=== PATIENT | female | born 1955 | race Caucasian/White ===

== ENCOUNTER 2021-02-20 12:24 | Inpatient (IN) | payer MEDICAID, MEDICARE ==
[~2021-02-20] VITALS: Ht 162.6 cm; Wt 82.6 kg
[2021-02-20] MEDS ORDERED: hydrALAZINE HCL IV 20 MG VIAL ONE (12:46)
--- NOTE | 2021-02-20 12:51 | NUR ---
luis antonio, from [facility], c/o headache and high blood pressure. bp 201/108 PT AAOX4, VSS. RR EVEN & UNLABORED. DENIES CP, SOB, DIZZINESS, N/V AT THIS TIME. PT SEEN & EVAL'D BY DR. LAUREN. PLACED ON TIMBER GRADER, SR. WILL CONT TO MONITOR.
[2021-02-20 12:56] LABS: BASOPHILS # (AUTO) 0.1 /CMM (0.0-0.2); BASOPHILS % (AUTO) 0.6 % (0.0-2.0); EOSINOPHILS % (AUTO) 19.9 % (0.0-6.0); HEMATOCRIT 39 % (33-45); HEMOGLOBIN 13.3 g/dL (11.5-14.8); LYMPHOCYTES # (AUTO) 2.2 /CMM (0.8-4.8); LYMPHOCYTES % (AUTO) 26.1 % (20.0-44.0); MEAN CORPUSCULAR HGB CONC 34 g/dl (31.0-36.0); MEAN CORPUSCULAR VOLUME 97 fL (82-100); MONOCYTES # (AUTO) 0.7 /CMM (0.1-1.30); MONOCYTES % (AUTO) 8.3 % (2.0-12.0); NEUTROPHILS # (AUTO) 3.9 /CMM (1.8-8.9); NEUTROPHILS % (AUTO) 45.1 % (43.0-81.0); PLATELET COUNT (AUTO) 207 /CMM (150-450); RED BLOOD CELL COUNT(AUTO) 4.04 MIL/uL (4.0-5.2); WHITE BLOOD COUNT (AUTO) 8.6 K/uL (4.3-11.0)
[2021-02-20] MEDS ORDERED: hydrALAZINE HCL IV 20 MG VIAL IV ONE (13:00)
[2021-02-20 13:31] LABS: ALANINE AMINOTRANSFERASE 17 U/L (12-78); ALBUMIN 3.6 g/dL (3.4-5.0); ALKALINE PHOSPHATASE 83 U/L (46-116); ASPARTATE AMINOTRANSFERASE 18 U/L (15-37); B-TYPE NATRIURETIC PEPTIDE 43 PG/ML (0-125); BILIRUBIN,DIRECT 0.1 mg/dL (0.0-0.2); BILIRUBIN,TOTAL 0.2 mg/dL (0.2-1.0); CALCIUM, SERUM 8.4 mg/dL (8.5-10.1); CARBON DIOXIDE 28 mmol/L (21-32); CHLORIDE 92 mmol/L (98-107); CREATININE 0.9 mg/dL (0.6-1.3); POTASSIUM 3.7 mmol/L (3.5-5.1); SODIUM SERUM 129 mmol/L (136-145); TOTAL PROTEIN, SERUM 6.9 g/dL (6.4-8.2); UREA NITROGEN, BLOOD 11 mg/dL (7-18)
[2021-02-20 13:36] LABS: GLUCOSE 105 mg/dL (74-106)
[2021-02-20] MEDS ORDERED: CHOL200013 PO (13:53)
[2021-02-20] MEDS ORDERED: DIVA-78 PO (13:53)
[2021-02-20] MEDS ORDERED: CALC500T53 PO (13:53)
[2021-02-20] MEDS ORDERED: ATOR20TA PO (13:53)
[2021-02-20] MEDS ORDERED: TRIA80OI TP (13:53)
[2021-02-20] MEDS ORDERED: AMLO5TAB4 PO (13:53)
[2021-02-20] MEDS ORDERED: CYAN-51 PO (13:53)
[2021-02-20] MEDS ORDERED: PARO30TA4 PO (13:53)
[2021-02-20] MEDS ORDERED: TRAZ-182 PO (13:53)
[2021-02-20] MEDS ORDERED: RISP2TAB85 PO (13:53)
[2021-02-20] MEDS ORDERED: LISI40TA13 PO (13:53)
[2021-02-20] MEDS: hydrALAZINE HCL IV 20 MG VIAL IV ONE ×2 (14:39→16:05)
--- NOTE | 2021-02-20 14:40 | NUR ---
PT BACK FROM CT. VSS. DENIES CP, SOB, DIZZINESS, N/V, [place] AT THIS TIME. WILL CONT TO MONITOR.
--- NOTE | 2021-02-20 14:40 | NUR ---
HOLD HYDRALAZINE PER DR. LAUREN DUE TO BP STABLE. PT DENIES CP, SOB, DIZZINESS, N/V, [place] AT THIS TIME. WILL CONT TO MONITOR.
--- NOTE | 2021-02-20 15:33 | NUR ---
NURSING SUP GAVE [phone].
--- NOTE | 2021-02-20 16:33 | NUR ---
NURSING SUP GAVE TELE 103-1.
--- NOTE | 2021-02-20 16:48 | NUR ---
REPORT GIVEN TO TANO BARBOUR FOR KOREY
[2021-02-20] MEDS ORDERED: MAG HYDROX/AL HYDROX/SIMETH 30 ML UDC PO PRN (17:00)
[2021-02-20] MEDS ORDERED: HYDROCODONE/APAP 5/325MG TABLET PO PRN (17:00)
[2021-02-20] MEDS ORDERED: MAGNESIUM HYDROXIDE 30 ML UDC PO PRN (17:00)
[2021-02-20] MEDS ORDERED: Z GUARD REMEDY 2 OZ OINT TP PRN (17:00)
[2021-02-20] MEDS ORDERED: ONDANSETRON HCL/PF 4 MG/2 ML VIAL IVP PRN (17:00)
[2021-02-20] MEDS: TRIAMCINOLONE OINT 0.1% 15 GM TUBE TP SCH (17:00)
--- NOTE | 2021-02-20 17:00 | NUR ---
RN ADMITTING NOTES Received PATIENT FROM ER, VIA GURNEY,patient ambulatory, A/Ox3, forgetful, on room air, SPO2 96%, no SOB noted, no pain reported, IV line on L AC intact, flushed, patent, starred NS @ 75cc/hr, safety measures in place, call light in reach, will cont to monitor
[2021-02-20] MEDS: CALCIUM CARBONATE (1250) 500 MG TABLET PO SCH (17:22)
[2021-02-20] MEDS: DIVALPROEX SODIUM 500 MG TABLET.DR PO SCH (17:22)
[2021-02-20] MEDS: IV NS 0.9% 1,000 ML IV PRN (17:23)
--- NOTE | 2021-02-20 17:57 | NUR ---
refused to change and wear gown, money placed in safe with dewatering filtering supervisor, paperwork completed
--- NOTE | 2021-02-20 19:15 | NUR ---
RN OPENING NOTES REC/D PT IN BED, AWAKE. A/O X3. PT NEEDS CONSISTENT REORIENTATION, FORGETFUL. PT IS ON ROOM AIR, TOLERATING WELL. NO S/S OF SOB OR RESP DISTRESS NOTED AT THIS TIME. PT IS NORMAL SINUS ON TELE MONITOR ING WITH HEART RATE OF 96. PT HAS IV ON LEFT AC, FLUSHED WITH IVF NS RUNNING AT 75ML/HR ORDERED. AMBULATORY WITH ASSIST, PT AT THIS TIME DENIES PAIN. SAFETY MEASURES IN PLACE HOB ELEVATED TOLERATED. SIDE RAILS UP X2 BED LOCKED IN LOWEST POSITION WITH CALL LIGHT WITHIN REACH BED ALARM ON. WILL CONT TO MONITOR CLOSELY MAKING FREQUENT ROUNDS.
[2021-02-20 20:00] VITALS: BP 148/65
[2021-02-20] MEDS: ACETAMINOPHEN 325 MG TABLET PO PRN (20:47)
--- NOTE | 2021-02-20 20:50 | NUR ---
RN NOTE PT REQUESTED TYLENOL FOR HEADACHE, PAIN 3-4/10. WILL CONT TO MONITOR
[2021-02-20] MEDS: ATORVASTATIN 10 MG TABLET PO SCH (22:39)
[2021-02-20] MEDS: risperiDONE 1 MG TABLET PO SCH (22:39)
[2021-02-20] MEDS: TRAZODONE 50 MG TABLET PO SCH (22:40)
--- NOTE | 2021-02-20 23:40 | NUR ---
RN NOTES PT USES RESTROOM, HAS STEADY GAIT. STANDBY ASSIST. EDUCATED PT ON IMPORTANCE OF USING CALL LIGHT FOR ASSISTANCE.
[2021-02-21] VITALS (8 sets, daily range): BP systolic 102–179; BP diastolic 60–114
--- NOTE | 2021-02-21 02:45 | NUR ---
RN NOTES PT APPEARS TO BE SLEEPING UPON ROUNDS. NO DISTRESS NOTED AT THIS TIME. WILL CONT TO MONITOR AND ASSESS FOR CHANGE OF CONDITION
[2021-02-21 06:19] LABS: BASOPHILS # (AUTO) 0.1 /CMM (0.0-0.2); BASOPHILS % (AUTO) 0.7 % (0.0-2.0); EOSINOPHILS % (AUTO) 16.9 % (0.0-6.0); HEMATOCRIT 40 % (33-45); HEMOGLOBIN 13.3 g/dL (11.5-14.8); LYMPHOCYTES # (AUTO) 1.9 /CMM (0.8-4.8); LYMPHOCYTES % (AUTO) 21.3 % (20.0-44.0); MEAN CORPUSCULAR HGB CONC 34 g/dl (31.0-36.0); MEAN CORPUSCULAR VOLUME 97 fL (82-100); MONOCYTES # (AUTO) 0.8 /CMM (0.1-1.30); MONOCYTES % (AUTO) 9.1 % (2.0-12.0); NEUTROPHILS # (AUTO) 4.6 /CMM (1.8-8.9); PLATELET COUNT (AUTO) 215 /CMM (150-450); RED BLOOD CELL COUNT(AUTO) 4.09 MIL/uL (4.0-5.2); WHITE BLOOD COUNT (AUTO) 8.9 K/uL (4.3-11.0)
[2021-02-21] MEDS: IV NS 0.9% 1,000 ML IV PRN (06:36)
--- NOTE | 2021-02-21 07:18 | NUR ---
RN CLOSING NOTES NO SIGNIFICANT CHANGES OVER NIGHT. PT STILL ON ROOM AIR, TOLERATING WELL, NO S/S OF SOB OR RESP DISTRESS AT THIS TIME. PT DENIES PAIN. ON TELE IS STILL SINUS RHYTHM WITH HEART RATE IN THE 80S. PT REMAINS WITH RIGHT HAND #22 WITH NS @ 75CC/HR RUNNING ORDERED. NO S/S OF INFILTRATION NOTED. BED BATH DONE, ALL NEEDS ATTENDED AND SAFETY MEASURES IN PLACE. HOB ELEVATED. SIDE RAILS UP X2, BED LOCKED IN LOWEST POSITION WITH BED ALARM ON. CALL LIGHT WITHIN REACH. WILL ENDORSE TO AM SHIFT FOR CONTINUATION OF CARE.
[2021-02-21 07:50] LABS: CREATININE 0.6 mg/dL (0.6-1.3); MAGNESIUM 2.3 mg/dL (1.8-2.4); PHOSPHORUS 3.7 mg/dL (2.5-4.9)
--- NOTE | 2021-02-21 08:00 | NUR ---
RN Note: Pt received alert awake oriented X 2 with periods of confusion & forgetfulness. On RA, no breathing distress noted. Denies pain & discomfort. Safety measures observed, IV line intact, running with IV fluids as ordered. Encourage to use call light for assistance. Continue to monitor.
[2021-02-21] MEDS: hydrALAZINE HCL IV 20 MG VIAL IV PRN ×2 (08:05→14:21)
[2021-02-21] MEDS: hydrALAZINE HCL 50 MG TABLET PO SCH ×3 (09:00→17:34)
[2021-02-21] MEDS ORDERED: AMLODIPINE BESYLATE 5 MG TABLET PO SCH (09:00)
[2021-02-21] MEDS: PANTOPRAZOLE 40 MG TABLET.DR PO SCH (09:09)
[2021-02-21] MEDS: PAROXETINE HCL 10 MG TABLET PO SCH (09:10)
[2021-02-21] MEDS: DIVALPROEX SODIUM 500 MG TABLET.DR PO SCH ×2 (09:10→17:34)
[2021-02-21] MEDS: CALCIUM CARBONATE (1250) 500 MG TABLET PO SCH ×2 (09:10→17:33)
[2021-02-21] MEDS: CHOLECALCIFEROL 1,000 UNIT TABLET (VIT D3) PO SCH (09:10)
[2021-02-21] MEDS: AMLODIPINE BESYLATE 5 MG TABLET PO SCH (09:11)
[2021-02-21] MEDS: CYANOCOBALAMIN 500 MCG TABLET PO SCH (09:12)
[2021-02-21] MEDS: LISINOPRIL (20MG) 20 MG TABLET PO SCH (09:12)
[2021-02-21] MEDS: TRIAMCINOLONE OINT 0.1% 15 GM TUBE TP SCH ×2 (09:31→17:00)
[2021-02-21] MEDS: NITROGLYCERIN 30 GM TUBE TP SCH ×2 (09:32→21:07)
[2021-02-21] MEDS: ACETAMINOPHEN 325 MG TABLET PO PRN (09:42)
[2021-02-21] MEDS: ATORVASTATIN 10 MG TABLET PO SCH (21:07)
[2021-02-21] MEDS: risperiDONE 1 MG TABLET PO SCH (21:07)
[2021-02-21] MEDS: TRAZODONE 50 MG TABLET PO SCH (21:07)
[2021-02-22] VITALS: BP 106/66
[2021-02-22 04:00] VITALS: BP 134/86
[2021-02-22] MEDS: ACETAMINOPHEN 325 MG TABLET PO PRN (05:34)
[2021-02-22 06:19] LABS: BASOPHILS # (AUTO) 0.1 /CMM (0.0-0.2); BASOPHILS % (AUTO) 0.5 % (0.0-2.0); EOSINOPHILS % (AUTO) 11.2 % (0.0-6.0); HEMATOCRIT 37 % (33-45); HEMOGLOBIN 12.6 g/dL (11.5-14.8); LYMPHOCYTES # (AUTO) 1.8 /CMM (0.8-4.8); LYMPHOCYTES % (AUTO) 14.8 % (20.0-44.0); MEAN CORPUSCULAR HGB CONC 34 g/dl (31.0-36.0); MEAN CORPUSCULAR VOLUME 96 fL (82-100); MONOCYTES # (AUTO) 1.2 /CMM (0.1-1.30); NEUTROPHILS # (AUTO) 7.5 /CMM (1.8-8.9); NEUTROPHILS % (AUTO) 63.5 % (43.0-81.0); PLATELET COUNT (AUTO) 218 /CMM (150-450); RED BLOOD CELL COUNT(AUTO) 3.88 MIL/uL (4.0-5.2); WHITE BLOOD COUNT (AUTO) 11.8 K/uL (4.3-11.0)
[2021-02-22 06:27] LABS: CREATININE 0.7 mg/dL (0.6-1.3); MAGNESIUM 2.5 mg/dL (1.8-2.4); PHOSPHORUS 3.7 mg/dL (2.5-4.9); POTASSIUM 3.8 mmol/L (3.5-5.1)
[2021-02-22 06:40] LABS: THYROID STIMULATING HORMONE 1.803 uIU/mL (0.358-3.74); URIC ACID 3.9 mg/dL (2.6-7.2)
--- NOTE | 2021-02-22 07:04 | NUR ---
RECEIVED PATIENT IN BED. NO ACUTE DISTRESS NOTED. PATIENT ALERT & ORIENTED X2, WITH FORGETFULNESS. PATIENT ON ROOM AIR, SATURATING WELL. PATIENT ON MARKET DEVELOPMENT SPECIALIST, NSR NOTED. PATIENT R HAND IV ACCESS INTACT, PATENT. PATIENT SAFETY MEASURES MAINTAINED. CALL LIGHT WITHIN REACH. WILL CONTINUE TO MONITOR
[2021-02-22 08:00] VITALS: BP 155/95
[2021-02-22] MEDS: PANTOPRAZOLE 40 MG TABLET.DR PO SCH (08:04)
[2021-02-22] MEDS: CYANOCOBALAMIN 500 MCG TABLET PO SCH (08:04)
[2021-02-22] MEDS: AMLODIPINE BESYLATE 5 MG TABLET PO SCH (08:05)
[2021-02-22] MEDS: hydrALAZINE HCL 50 MG TABLET PO SCH ×2 (08:05→12:04)
[2021-02-22] MEDS: LISINOPRIL (20MG) 20 MG TABLET PO SCH (08:05)
[2021-02-22] MEDS: DIVALPROEX SODIUM 500 MG TABLET.DR PO SCH (08:05)
[2021-02-22] MEDS: PAROXETINE HCL 10 MG TABLET PO SCH (08:05)
[2021-02-22] MEDS: CALCIUM CARBONATE (1250) 500 MG TABLET PO SCH (08:05)
[2021-02-22] MEDS: TRIAMCINOLONE OINT 0.1% 15 GM TUBE TP SCH (08:06)
[2021-02-22] MEDS: CHOLECALCIFEROL 1,000 UNIT TABLET (VIT D3) PO SCH (08:06)
[2021-02-22] MEDS: NITROGLYCERIN 30 GM TUBE TP SCH (08:06)
--- NOTE | 2021-02-22 08:08 | NUR ---
OK BY DR. SUAREZ ORDERING MD TO CONSENT FOR CT CHEST WITH CONTRAST, IVETH FISHER CONSENTED RADIOLOGIST MADE AWARE.
[2021-02-22] MEDS ORDERED: CARVEDILOL 12.5 MG TABLET PO SCH (09:30)
[2021-02-22] MEDS ORDERED: ISOSORBIDE DINITRATE (20MG) 20 MG TABLET PO SCH (09:30)
[2021-02-22] MEDS ORDERED: IV NS 0.9% 250 ML IV ONE (10:39)
[2021-02-22] MEDS ORDERED: IOHEXOL-300 100 ML VIAL IV ONE (10:39)
[2021-02-22] MEDS ORDERED: CT SWABBABLE VALVE TRANS SET 1 EA INFUS.SET MC ONE (10:40)
[2021-02-22 12:04] VITALS: BP 155/95
[2021-02-22] MEDS ORDERED: AMLO-212 PO ×2 (12:58→14:27)
[2021-02-22] MEDS ORDERED: HYDR-4077 PO ×2 (12:58→14:27)
[2021-02-22] MEDS ORDERED: ISOS20TA8 PO ×2 (12:58→14:27)
[2021-02-22] MEDS ORDERED: CARV12.52 PO ×2 (12:58→14:27)
--- NOTE | 2021-02-22 15:46 | NUR ---
PATIENT DISCHARGED IN STABLE CONDITION. PAPERWORK, INSTRUCTIONS, BELONGINGS GIVEN. IV ACCESS REMOVED. PATIENT DOWNGRADED TO MED SURG, SO NO TELE BOX ANYMORE.
--- NOTE | 2021-02-23 11:42 | NUR ---
Line Supply note: SW contacted patient's Board and Care [phone] to locate a family member or legal decision maker. GE spoke to the contract coordinator of the Board and Care, Al who stated that the patient does not have any family contact. Al stated the patient is a [facility] client and provided this SW with the patient's [facility] contact information (Anastasiya Nelson [phone]). GE called patient's [facility] to discuss the patient (Anastasiya Nelson [phone]) and gather information. GE was unable to reach and left a voicemail.
== END 2021-02-22 15:41 | DRG 699 ==
LOC: ER 13:33 → TELE 15:40 → UNDOADMIN 15:40 → TELE1 16:34 → MEDSG1 02-22 08:22
PROVIDERS: ADMIT Nurse Practitioner Family; ATTEND Nurse Practitioner Family
DX: I70.1 Atherosclerosis of renal artery (principal); R18.8 Other ascites; E87.1 Hypo-osmolality and hyponatremia; I16.0 Hypertensive urgency; Z20.822 Contact with and (suspected) exposure to COVID-19; G40.909 Epilepsy, unspecified, not intractable, without status epilepticus; F03.90 Unspecified dementia, unspecified severity, without behavioral disturbance, psychotic disturbance, mood disturbance, and anxiety; E78.5 Hyperlipidemia, unspecified; I10 Essential (primary) hypertension; Z79.899 Other long term (current) drug therapy; R62.50 Unspecified lack of expected normal physiological development in childhood; F41.9 Anxiety disorder, unspecified; I70.0 Atherosclerosis of aorta; F20.9 Schizophrenia, unspecified; R91.8 Other nonspecific abnormal finding of lung field
CPT/HCPCS: 36415; 70450-TC; 71045-TC; 71260-TC; 80048-TC; 80061-TC; 80076-TC; 83735-TC; 83880; 84100-TC; 84439-TC; 84443-TC; 84484-TC; 84550-TC; 85025-TC; 85730-TC; 87081-TC; 93307-TC; G0378; J0360; J7030; J7050; Q9967; U0003

== ENCOUNTER 2021-12-10 12:50 | Inpatient (IN) | payer MEDICARE ==
[~2021-12-10] VITALS: Ht 160 cm; Wt 85.4 kg
[~2021-12-10 12:50] MED LIST: AMLO-212 PO; ATOR20TA PO; CALC500T53 PO; CARV12.52 PO; CHOL200013 PO; CYAN-51 PO; DIVA-78 PO; HYDR-4077 PO; ISOS20TA8 PO; LISI40TA13 PO; PARO30TA4 PO; RISP2TAB85 PO; TRAZ-182 PO; TRIA80OI TP
[2021-12-10] MEDS ORDERED: IV NS 0.9% 250 ML IV ONE (13:07)
[2021-12-10] MEDS ORDERED: IOHEXOL-350 100 ML VIAL IV ONE (13:07)
[2021-12-10 13:10] LABS: BASOPHILS % (AUTO) 0.8 % (0.0-2.0); EOSINOPHILS % (AUTO) 2.9 % (0.0-6.0); HEMATOCRIT 38 % (33-45); HEMOGLOBIN 12.8 g/dL (11.5-14.8); LYMPHOCYTES # (AUTO) 1.9 K/uL (0.8-4.8); LYMPHOCYTES % (AUTO) 30.8 % (20.0-44.0); MEAN CORPUSCULAR HGB CONC 34 g/dl (31.0-36.0); MEAN CORPUSCULAR VOLUME 99 fL (82-100); MONOCYTES # (AUTO) 0.5 K/uL (0.1-1.30); NEUTROPHILS # (AUTO) 3.5 K/uL (1.8-8.9); NEUTROPHILS % (AUTO) 57.5 % (43.0-81.0); PLATELET COUNT (AUTO) 249 K/uL (150-450); RED BLOOD CELL COUNT(AUTO) 3.88 MIL/uL (4.0-5.2); WHITE BLOOD COUNT (AUTO) 6.2 K/uL (4.3-11.0)
[2021-12-10 13:19] LABS: CALCIUM, SERUM 9.3 mg/dL (8.5-10.1); CARBON DIOXIDE 24 mmol/L (21-32); CHLORIDE 104 mmol/L (98-107); CREATININE 0.8 mg/dL (0.6-1.3); GLUCOSE 178 mg/dL (74-106); POTASSIUM 3.8 mmol/L (3.5-5.1); SODIUM SERUM 136 mmol/L (136-145); UREA NITROGEN, BLOOD 14 mg/dL (7-18)
[2021-12-10] MEDS ORDERED: LORA-259 PO (13:50)
[2021-12-10] MEDS ORDERED: CARV25TA PO (13:50)
[2021-12-10] MEDS ORDERED: LEVE500T20 PO (13:50)
[2021-12-10] MEDS ORDERED: MAGN400T8 PO (13:50)
[2021-12-10] MEDS ORDERED: hydrALAZINE HCL 50 MG TABLET ONE (16:49)
[2021-12-10] MEDS ORDERED: LORAZEPAM 1 MG TABLET PO PRN (17:00)
[2021-12-10] MEDS ORDERED: ASPIRIN 81 MG TAB.CHEW PO ONE (17:00)
[2021-12-10] MEDS ORDERED: Medication Not On Formulary EA (Levetiracetam 250 MG) PO SCH (17:00)
[2021-12-10] MEDS ORDERED: ONDANSETRON HCL/PF 4 MG/2 ML VIAL IVP PRN (17:30)
[2021-12-10] MEDS ORDERED: Z GUARD REMEDY 4 OZ OINT TP PRN (17:30)
[2021-12-10] MEDS ORDERED: ACETAMINOPHEN 325 MG TABLET PO PRN (17:30)
[2021-12-10] MEDS ORDERED: MAGNESIUM HYDROXIDE 30 ML UDC PO PRN (17:30)
[2021-12-10] MEDS ORDERED: MAG HYDROX/AL HYDROX/SIMETH 30 ML UDC PO PRN (17:30)
[2021-12-10] MEDS ORDERED: ENOXAPARIN SODIUM 40 MG/0.4 ML DISP.SYRIN SQ ONE (17:43)
[2021-12-10] MEDS ORDERED: ASPIRIN 81 MG TAB.CHEW ONE (17:43)
[2021-12-10] MEDS: ENOXAPARIN SODIUM 40 MG/0.4 ML DISP.SYRIN SQ SCH (17:46)
[2021-12-10] MEDS: hydrALAZINE HCL 50 MG TABLET PO SCH (17:51)
[2021-12-10] MEDS ORDERED: CARVEDILOL 12.5 MG TABLET ONE (17:53)
[2021-12-10] MEDS: LEVETIRACETAM (250 MG) 250 MG TABLET PO SCH (17:53)
[2021-12-10] MEDS ORDERED: LEVETIRACETAM (250 MG) 250 MG TABLET PO ONE (17:53)
[2021-12-10] MEDS: CARVEDILOL 12.5 MG TABLET PO SCH (17:54)
[2021-12-10 22:08] VITALS: BP 186/99
[2021-12-10] MEDS: ATORVASTATIN 40 MG TABLET PO SCH (22:48)
[2021-12-10] MEDS: TRAZODONE 50 MG TABLET PO SCH (22:48)
[2021-12-11] VITALS: BP 148/76
[2021-12-11 04:00] VITALS: BP 131/79
[2021-12-11 06:44] LABS: BASOPHILS % (AUTO) 0.6 % (0.0-2.0); EOSINOPHILS % (AUTO) 2.1 % (0.0-6.0); HEMATOCRIT 39 % (33-45); HEMOGLOBIN 12.9 g/dL (11.5-14.8); LYMPHOCYTES # (AUTO) 2.1 K/uL (0.8-4.8); LYMPHOCYTES % (AUTO) 29.2 % (20.0-44.0); MEAN CORPUSCULAR HGB CONC 33 g/dl (31.0-36.0); MEAN CORPUSCULAR VOLUME 99 fL (82-100); MONOCYTES # (AUTO) 0.8 K/uL (0.1-1.30); MONOCYTES % (AUTO) 11.1 % (2.0-12.0); NEUTROPHILS # (AUTO) 4.2 K/uL (1.8-8.9); PLATELET COUNT (AUTO) 245 K/uL (150-450); RED BLOOD CELL COUNT(AUTO) 3.91 MIL/uL (4.0-5.2); WHITE BLOOD COUNT (AUTO) 7.3 K/uL (4.3-11.0)
[2021-12-11 06:58] LABS: CALCIUM, SERUM 9.1 mg/dL (8.5-10.1); CREATININE 0.7 mg/dL (0.6-1.3); MAGNESIUM 2.2 mg/dL (1.8-2.4); POTASSIUM 3.6 mmol/L (3.5-5.1)
[2021-12-11 08:07] VITALS: BP 155/104
[2021-12-11] MEDS: CYANOCOBALAMIN 500 MCG TABLET PO SCH (08:15)
[2021-12-11] MEDS: hydrALAZINE HCL 50 MG TABLET PO SCH ×3 (08:16→17:38)
[2021-12-11] MEDS: AMLODIPINE BESYLATE 5 MG TABLET PO SCH (08:16)
[2021-12-11] MEDS: CHOLECALCIFEROL 1,000 UNIT TABLET (VIT D3) PO SCH (08:16)
[2021-12-11] MEDS: LEVETIRACETAM (250 MG) 250 MG TABLET PO SCH ×2 (08:16→17:37)
[2021-12-11] MEDS: CARVEDILOL 12.5 MG TABLET PO SCH ×2 (08:17→17:37)
[2021-12-11] MEDS ORDERED: CHOLECALCIFEROL 2000 UNIT PO SCH (09:00)
[2021-12-11] MEDS ORDERED: PAROXETINE HCL 30 MG PO SCH (09:00)
[2021-12-11] MEDS: PAROXETINE HCL 10 MG TABLET PO SCH (09:22)
[2021-12-11 10:04] LABS: THYROID STIMULATING HORMONE 2.731 uIU/mL (0.358-3.74)
[2021-12-11 15:48] VITALS: BP 150/75
[2021-12-11] MEDS: ENOXAPARIN SODIUM 40 MG/0.4 ML DISP.SYRIN SQ SCH (17:40)
[2021-12-11 20:00] VITALS: BP 128/76
[2021-12-11] MEDS: TRAZODONE 50 MG TABLET PO SCH (21:02)
[2021-12-11] MEDS: ATORVASTATIN 40 MG TABLET PO SCH (21:02)
[2021-12-12] VITALS: BP 146/88
[2021-12-12 04:00] VITALS: BP 154/87
[2021-12-12 06:14] LABS: BASOPHILS % (AUTO) 0.6 % (0.0-2.0); EOSINOPHILS % (AUTO) 2.4 % (0.0-6.0); HEMATOCRIT 38 % (33-45); HEMOGLOBIN 12.9 g/dL (11.5-14.8); LYMPHOCYTES # (AUTO) 1.8 K/uL (0.8-4.8); MEAN CORPUSCULAR HGB CONC 34 g/dl (31.0-36.0); MEAN CORPUSCULAR VOLUME 98 fL (82-100); MONOCYTES # (AUTO) 0.7 K/uL (0.1-1.30); MONOCYTES % (AUTO) 12.3 % (2.0-12.0); NEUTROPHILS % (AUTO) 52.7 % (43.0-81.0); PLATELET COUNT (AUTO) 230 K/uL (150-450); RED BLOOD CELL COUNT(AUTO) 3.86 MIL/uL (4.0-5.2); WHITE BLOOD COUNT (AUTO) 5.7 K/uL (4.3-11.0)
[2021-12-12 06:41] LABS: CALCIUM, SERUM 9.6 mg/dL (8.5-10.1); CREATININE 0.7 mg/dL (0.6-1.3); MAGNESIUM 2.2 mg/dL (1.8-2.4); POTASSIUM 3.7 mmol/L (3.5-5.1)
[2021-12-12 08:00] VITALS: BP 148/86
[2021-12-12] MEDS: CHOLECALCIFEROL 1,000 UNIT TABLET (VIT D3) PO SCH (08:10)
[2021-12-12] MEDS: CARVEDILOL 12.5 MG TABLET PO SCH ×2 (08:10→16:24)
[2021-12-12] MEDS: LEVETIRACETAM (250 MG) 250 MG TABLET PO SCH ×2 (08:10→16:24)
[2021-12-12] MEDS: hydrALAZINE HCL 50 MG TABLET PO SCH ×3 (08:10→16:23)
[2021-12-12] MEDS: CYANOCOBALAMIN 500 MCG TABLET PO SCH (08:10)
[2021-12-12] MEDS: AMLODIPINE BESYLATE 5 MG TABLET PO SCH (08:11)
[2021-12-12] MEDS: PAROXETINE HCL 10 MG TABLET PO SCH (08:13)
[2021-12-12] MEDS ORDERED: ASPI-866 PO (10:48)
[2021-12-12] MEDS ORDERED: ASPIRIN 81 MG TAB.CHEW PO SCH (11:00)
[2021-12-12 12:00] VITALS: BP 119/78
[2021-12-12 16:24] VITALS: BP 170/86
== END 2021-12-12 16:30 | DRG 69 ==
LOC: ER 12:54 → TRANSITION 17:01 → TELE 21:18
PROVIDERS: ADMIT Nurse Practitioner Family; ATTEND Nurse Practitioner Family
DX: G45.9 Transient cerebral ischemic attack, unspecified (principal); E78.5 Hyperlipidemia, unspecified; F20.9 Schizophrenia, unspecified; F02.80 Dementia in other diseases classified elsewhere, unspecified severity, without behavioral disturbance, psychotic disturbance, mood disturbance, and anxiety; G40.909 Epilepsy, unspecified, not intractable, without status epilepticus; I10 Essential (primary) hypertension; F32.A Depression, unspecified; Z79.82 Long term (current) use of aspirin; Z79.899 Other long term (current) drug therapy; R73.9 Hyperglycemia, unspecified; G20 Parkinson's disease; E04.1 Nontoxic single thyroid nodule; I70.1 Atherosclerosis of renal artery; R13.10 Dysphagia, unspecified; R29.701 NIHSS score 1
CPT/HCPCS: 36415; 70450-TC; 70496-TC; 70498-TC; 70551-TC; 71045-TC; 76536-TC; 80048-TC; 80061-TC; 82962-TC; 83735-TC; 84439-TC; 84443-TC; 84484-TC; 85025-TC; 85730-TC; 87081-TC; 92526; 92611-TC; 93307-TC; 97116-TC; 97530-TC; C9803; G0378; J1650; J7050; Q9967

== ENCOUNTER 2023-02-20 13:19 | Inpatient (IN) | payer MEDICARE, OTHER ==
[~2023-02-20] VITALS: Ht 162.6 cm; Wt 64.9 kg
[~2023-02-20 13:19] MED LIST changes: +ASPI-866 PO; -CARV12.52 PO; +CARV25TA PO; -DIVA-78 PO; -ISOS20TA8 PO; +LEVE500T20 PO; -LISI40TA13 PO; +LORA-259 PO; +MAGN400T8 PO; -RISP2TAB85 PO; -TRIA80OI TP
--- NOTE | 2023-02-20 13:45 | NUR ---
[id number] FROM [facility] FOR SOB COUGH CONGESTION X 2 DAYS 89% ROOM AIR ON SCENE, 96% ON 4L NC ON ARRIVAL
[2023-02-20] MEDS ORDERED: ALBUTEROL FS 2.5 MG/0.5 ML VIAL.NEB ONE (14:22)
[2023-02-20] MEDS ORDERED: IPRATROPIUM NEB FS 0.5 MG/2.5 ML AMPUL.NEB ONE (14:22)
[2023-02-20] MEDS ORDERED: ALBUTEROL FS 2.5 MG/0.5 ML VIAL.NEB NEB ONE (14:30)
[2023-02-20] MEDS ORDERED: IPRATROPIUM NEB FS 0.5 MG/2.5 ML AMPUL.NEB NEB ONE (14:30)
--- NOTE | 2023-02-20 14:42 | NUR ---
RT AT BEDSIDE FOR BREATHING TX
[2023-02-20 14:52] LABS: BASOPHILS % (AUTO) 0.1 % (0.0-2.0); EOSINOPHILS % (AUTO) 0.1 % (0.0-6.0); HEMATOCRIT 34 % (33-45); HEMOGLOBIN 10.9 g/dL (11.5-14.8); LYMPHOCYTES # (AUTO) 0.6 K/uL (0.8-4.8); LYMPHOCYTES % (AUTO) 3.5 % (20.0-44.0); MEAN CORPUSCULAR HGB CONC 32 g/dl (31.0-36.0); MEAN CORPUSCULAR VOLUME 96 fL (82-100); MONOCYTES # (AUTO) 0.2 K/uL (0.1-1.30); MONOCYTES % (AUTO) 1.5 % (2.0-12.0); NEUTROPHILS % (AUTO) 94.8 % (43.0-81.0); PLATELET COUNT (AUTO) 182 K/uL (150-450); RED BLOOD CELL COUNT(AUTO) 3.59 MIL/uL (4.0-5.2); WHITE BLOOD COUNT (AUTO) 15.8 K/uL (4.3-11.0)
[2023-02-20 15:07] LABS: CALCIUM, SERUM 9.2 mg/dL (8.5-10.1); CARBON DIOXIDE 26 mmol/L (21-32); CHLORIDE 101 mmol/L (98-107); CREATININE 1.1 mg/dL (0.6-1.3); GLUCOSE 141 mg/dL (74-106); POTASSIUM 3.7 mmol/L (3.5-5.1); SODIUM SERUM 134 mmol/L (136-145); UREA NITROGEN, BLOOD 20 mg/dL (7-18)
[2023-02-20] MEDS ORDERED: VANCOMYCIN 1 GM in IV D5W 250 ML IV ONE (15:30)
[2023-02-20] MEDS ORDERED: CEFEPIME 2 GM in IV D5W 100 ML IV ONE (15:30)
[2023-02-20] MEDS ORDERED: POTASSIUM CHLORIDE 20 MEQ TAB.PRT.SR PO ONE ×2 (15:30→15:58)
[2023-02-20] MEDS ORDERED: BENZ0.5T43 PO (15:50)
[2023-02-20] MEDS ORDERED: CHOL100043 PO (15:50)
[2023-02-20] MEDS ORDERED: HYDR-4077 PO (15:50)
[2023-02-20] MEDS ORDERED: RISP0.2515 PO (15:50)
[2023-02-20] MEDS ORDERED: ASPI-1420 PO (15:50)
[2023-02-20] MEDS ORDERED: OMEP40CA21 PO (15:50)
--- NOTE | 2023-02-20 15:51 | NUR ---
MOVE SHEET SUBMITTED.
--- NOTE | 2023-02-20 15:53 | NUR ---
COVID SWAB OBTAINED AND SENT TO LAB.
[2023-02-20] MEDS ORDERED: Magnesium 1GM/D5W 100ML PREMIX 200 ML IV ONE (18:00)
[2023-02-20] MEDS: Magnesium 1GM/D5W 100ML PREMIX 100 ML IV SCH ×2 (18:34→20:00)
--- NOTE | 2023-02-20 19:41 | NUR ---
JOEY HUIZAR [phone]
--- NOTE | 2023-02-20 20:10 | NUR ---
REPORT GIVEN TO VARSHA FREEDMAN FOR CONTINUATION OF CARE.
[2023-02-20 20:50] VITALS: BP 157/88
--- NOTE | 2023-02-20 21:02 | NUR ---
PT TRANSFERRED TO [facility] VIA ACLS PROTOCOL. VSS. ALL BELONGINGS WITH PT.
--- NOTE | 2023-02-20 21:30 | NUR ---
DENTAL SALES REPRESENTATIVE ADMITTING NOTES RECEIVED PATIENT VIA eyeSight Mobile TechnologiesETCHER. AWAKE. A/O X 2-3. ABLE TO MAKE NEEDS KNOWN. EPISODES OF CONFUSION AND INCORRECT ANSWERS. PATIENT ON NASAL CANNULA @3LPM TOLERATING WELL WITH SATURATION OF 96%. PATIENT HAVING SOB AND WHEEZING UPON EXERTION. PATIENT DENIES ANY PAIN AT THE MOMENT. PATIENT ON TELE MONITOR WITH READING OF SINUS RHYTHM 70BPM. SKIN ASSESSMENT AND BODY CHECK DONE WITH PATIENTS PERMISSION TO DO SO. SKIN IS INTACT NOTED. IV ACCESS ON RIGHT AC G#20 NOTED TO BE PATENT AND INTACT INFUSING 0.9%NS @75CC/HR ORDERED. PATIENT WAS ORIENTED TO THE ROOM AND HOW TO USE THE CALL LIGHT. PATIENT VERBALIZES UNDERSTANDING. ALL BELONGINGS ARE ACCOUNTED FOR. SAFETY MEASURE IN PLACED; BED LOCKED AND IN LOWEST POSITION, HOB ELEVATED, CALL LIGHT AND BEDSIDE TABLE WITHIN PATIENT REACH.
[2023-02-20] MEDS ORDERED: ALBUTEROL HALF STRENGTH 1.25 MG/3 ML VIAL.NEB NEB PRN (22:00)
[2023-02-20] MEDS ORDERED: ONDANSETRON HCL/PF 4 MG/2 ML VIAL IVP PRN (22:00)
[2023-02-20] MEDS ORDERED: IPRATROPIUM NEB FS 0.5 MG/2.5 ML AMPUL.NEB NEB PRN (22:00)
[2023-02-20] MEDS ORDERED: ACETAMINOPHEN 325 MG TABLET PO PRN (22:00)
[2023-02-20] MEDS: ENOXAPARIN SODIUM 40 MG/0.4 ML DISP.SYRIN SQ SCH (22:40)
[2023-02-20] MEDS: TRAZODONE 50 MG TABLET PO SCH (22:46)
[2023-02-20] MEDS: hydrALAZINE HCL 50 MG TABLET PO SCH (22:46)
[2023-02-20] MEDS: LEVETIRACETAM (250 MG) 250 MG TABLET PO SCH (22:46)
[2023-02-20] MEDS: ATORVASTATIN 10 MG TABLET PO SCH (22:50)
[2023-02-20] MEDS: BENZTROPINE MESYLATE (1 MG) 1 MG TABLET PO SCH (22:50)
[2023-02-20] MEDS: CARVEDILOL 12.5 MG TABLET PO SCH (22:50)
[2023-02-20] MEDS: IV NS 0.9% 1,000 ML IV PRN (23:22)
[2023-02-21] VITALS: BP 114/72
[2023-02-21 04:00] VITALS: BP 131/72
[2023-02-21] MEDS ORDERED: CEFEPIME 2 GM in IV D5W 100 ML IV ONE (04:00)
--- NOTE | 2023-02-21 04:06 | NUR ---
RN NOTE CEFEPIME NOT ADMINISTERED NO MEDICATION AVAILABLE. CALLED BOX LINING MACHINE FEEDER THERE IS NON AVAILABLE. CHARGE NURSE MADE AWARE. WILL CALL PHARMACY IN THE MORNING.
[2023-02-21 06:34] LABS: BASOPHILS % (AUTO) 0.1 % (0.0-2.0); EOSINOPHILS % (AUTO) 0.4 % (0.0-6.0); HEMATOCRIT 30 % (33-45); HEMOGLOBIN 10.1 g/dL (11.5-14.8); LYMPHOCYTES # (AUTO) 0.9 K/uL (0.8-4.8); LYMPHOCYTES % (AUTO) 7.6 % (20.0-44.0); MEAN CORPUSCULAR HGB CONC 33 g/dl (31.0-36.0); MEAN CORPUSCULAR VOLUME 95 fL (82-100); MONOCYTES # (AUTO) 0.4 K/uL (0.1-1.30); MONOCYTES % (AUTO) 3.2 % (2.0-12.0); NEUTROPHILS # (AUTO) 10.5 K/uL (1.8-8.9); NEUTROPHILS % (AUTO) 88.7 % (43.0-81.0); PLATELET COUNT (AUTO) 166 K/uL (150-450); RED BLOOD CELL COUNT(AUTO) 3.19 MIL/uL (4.0-5.2); WHITE BLOOD COUNT (AUTO) 11.8 K/uL (4.3-11.0)
--- NOTE | 2023-02-21 06:54 | NUR ---
LEAD CLINICAL RESEARCH COORDINATOR CLOSING NOTE PATIENT IN BED SLEEPING EASILY AWAKEN WHEN CALLED BY NAME. A/O X 2-3. ABLE TO MAKE NEEDS KNOWN. EPISODES OF CONFUSION AND INCORRECT ANSWERS. PATIENT ON NASAL CANNULA @3LPM TOLERATING WELL WITH SATURATION OF 96%. PATIENT HAVING SOB AND WHEEZING UPON EXERTION. PATIENT DENIES ANY PAIN AT THE MOMENT. PATIENT ON TELE MONITOR WITH READING OF SINUS RHYTHM 70BPM. IV ACCESS ON RIGHT AC G#20 NOTED TO BE PATENT AND INTACT INFUSING 0.9%NS @75CC/HR ORDERED. ALL DUE MEDICATION IS GIVEN, ALL NEEDS ARE MET. SAFETY MEASURE IN PLACED; BED LOCKED AND IN LOWEST POSITION, HOB ELEVATED, CALL LIGHT AND BEDSIDE TABLE WITHIN PATIENT REACH. ENDORSED TO NEXT SHIFT NURSE FOR CONTINUITY OF CARE.
[2023-02-21 07:00] VITALS: BP 137/73
[2023-02-21 07:01] LABS: CALCIUM, SERUM 8.7 mg/dL (8.5-10.1); CREATININE 0.7 mg/dL (0.6-1.3); MAGNESIUM 2.1 mg/dL (1.8-2.4); PHOSPHORUS 2.4 mg/dL (2.5-4.9); POTASSIUM 3.9 mmol/L (3.5-5.1)
[2023-02-21] MEDS ORDERED: OMEPRAZOLE 20 MG CAPSULE.DR PO SCH (07:30)
--- NOTE | 2023-02-21 07:30 | NUR ---
RN OPENING NOTE- PATIENT ALERT, . A/O X 2-3. ABLE TO MAKE NEEDS KNOWN. PATIENT ON NASAL CANNULA @3LPM TOLERATING WELL WITH SATURATION OF 98% PATIENT DENIES ANY PAIN AT THE MOMENT. PATIENT ON TELE MONITOR WITH READING OF SINUS RHYTHM 74 BPM. IV ACCESS ON RIGHT AC G#20 NOTED TO BE PATENT AND INTACT INFUSING 0.9%NS @75CC/HR ORDERED. SAFETY MEASURE IN PLACED; BED LOCKED AND IN LOWEST POSITION, HOB ELEVATED, CALL LIGHT AND BEDSIDE TABLE WITHIN PATIENT REACH. MONITOR/ ASSIST
[2023-02-21] MEDS: CEFEPIME 2 GM in IV D5W 100 ML IV SCH ×2 (08:08→20:05)
[2023-02-21] MEDS: hydrALAZINE HCL 50 MG TABLET PO SCH ×3 (09:31→17:59)
[2023-02-21] MEDS: ASPIRIN EC 81 MG TABLET.DR PO SCH (09:32)
[2023-02-21] MEDS: BENZTROPINE MESYLATE (1 MG) 1 MG TABLET PO SCH ×2 (09:34→18:01)
[2023-02-21] MEDS: LEVETIRACETAM (250 MG) 250 MG TABLET PO SCH ×2 (09:34→21:14)
[2023-02-21] MEDS: CHOLECALCIFEROL (VITAMIN D 3) 400 UNIT TABLET PO SCH (09:34)
[2023-02-21] MEDS: CARVEDILOL 12.5 MG TABLET PO SCH ×2 (09:36→18:00)
[2023-02-21] MEDS: PAROXETINE HCL 20 MG TABLET PO SCH (09:37)
[2023-02-21] MEDS: risperiDONE 1 MG TABLET PO SCH ×2 (09:38→18:02)
[2023-02-21] MEDS: MAGNESIUM OXIDE 400 MG TABLET PO SCH (09:38)
[2023-02-21] MEDS: VANCOMYCIN 1 GM in IV D5W 250 ML IV SCH (12:00)
[2023-02-21 12:14] VITALS: BP 130/73
[2023-02-21 16:00] VITALS: BP 118/68
[2023-02-21] MEDS ORDERED: K PHOS NEUTRAL 250 MG TABLET PO ONE (16:00)
--- NOTE | 2023-02-21 18:30 | NUR ---
RN CLOSING NOTE- MOSTLY UNCHANGED, . A/O X 2-3. ABLE TO MAKE NEEDS KNOWN. PATIENT ON NASAL CANNULA @3LPM TOLERATING WELL WITH SATURATION OF 98% 02 WITH PERIODS OF NON USE. PT REMOVES. SATS AT 92-94%. PATIENT. PATIENT ON TELE MONITOR WITH READING OF SINUS RHYTHM 70 BPM. IV ACCESS ON RIGHT AC G#20 NOTED TO BE PATENT AND INTACT INFUSING 0.9%NS @75CC/HR ORDERED. CXR IN AM, AM LABS, SAFETY MEASURE IN PLACED; BED LOCKED AND IN LOWEST POSITION, HOB ELEVATED, CALL LIGHT AND BEDSIDE TABLE WITHIN PATIENT REACH. MONITOR/ ASSIST
--- NOTE | 2023-02-21 19:30 | NUR ---
SPECIAL FORCES ENGINEER SERGEANT OPENING NOTE RECEIVED PT AWAKE IN BED, HOB ELEVATED, WEARING OWN CLOTHES. A/O X1-2, ORIENTED TO NAME AND TIME ONLY, A BIT CONFUSED, WILL SAY RANDOM WORDS, ABLE TO MAKE NEEDS KNOWN. ON O2 3L VIA NC, WITH NO S/S OF SOB OR DISTRESS. DENIES PAIN AT THIS TIME. ON TELE MONITOR WITH READING OF SINUS RHYTHM 75 BPM. IV ACCESS RAC #20G NOTED TO BE PATENT AND INTACT INFUSING 0.9%NS @75CC/HR ORDERED. SAFETY MEASURES IN PLACE: BED LOCKED AND IN LOWEST POSITION, SIDE RAILS UP X3, CALL LIGHT AND BEDSIDE TABLE WITHIN PATIENT REACH. WILL CONTINUE TO MONITOR AND ASSIST.
[2023-02-21 20:00] VITALS: BP_SYST 157; BP_SYST 168; BP_DIAS 72; BP_DIAS 79
[2023-02-21] MEDS: ATORVASTATIN 10 MG TABLET PO SCH (21:14)
[2023-02-21] MEDS: TRAZODONE 50 MG TABLET PO SCH (21:14)
[2023-02-21] MEDS: ENOXAPARIN SODIUM 40 MG/0.4 ML DISP.SYRIN SQ SCH (21:15)
[2023-02-22] VITALS (7 sets, daily range): BP systolic 113–156; BP diastolic 63–97
--- NOTE | 2023-02-22 04:40 | NUR ---
RN NOTE PT IV LINE GOT DISLODGED. NEW ONE INSERTED: L HAND #22 G.
[2023-02-22] MEDS: VANCOMYCIN 1 GM in IV D5W 250 ML IV SCH (05:19)
--- NOTE | 2023-02-22 06:54 | NUR ---
RETORT FORKER CLOSING NOTE PT AWAKE IN BED, HOB ELEVATED, WEARING OWN CLOTHES. A/O X1-2, ORIENTED TO NAME AND TIME ONLY, A BIT CONFUSED AT TIMES, WILL SAY RANDOM SOUNDS/WORDS, ABLE TO MAKE NEEDS KNOWN. STABLE ON RA WITH NO S/S OF SOB OR DISTRESS, SATTING AT 97%. DENIES PAIN AT THIS TIME. ON TELE MONITOR WITH READING OF SINUS RHYTHM 67 BPM. IV ACCESS L HAND #22G, PATENT, INTACT, FLUSHING WELL, INFUSING 0.9%NS @ 75 ML/HR. ALL CARE PROVIDED AND MEDS TOLERATED WELL. SAFETY MEASURES MAINTAINED: BED LOCKED AND IN LOWEST POSITION, SIDE RAILS UP X3, CALL LIGHT AND BEDSIDE TABLE WITHIN PATIENT REACH. WILL ENDORSE KOREY TO DAY SHIFT NURSE.
[2023-02-22 07:16] LABS: CALCIUM, SERUM 8.9 mg/dL (8.5-10.1); CREATININE 0.6 mg/dL (0.6-1.3); PHOSPHORUS 2.8 mg/dL (2.5-4.9); POTASSIUM 3.4 mmol/L (3.5-5.1)
--- NOTE | 2023-02-22 07:45 | NUR ---
PUBLIC HEALTH WORKER TELE OPNEING NOTES PATIENT RECEIVED AWAKE, A/Ox4. ABLE TO MAKE NEEDS KNOWN. STABLE ON ROOM AIR. NO S/S OF SOB. PATIENT ON EXTERNAL MONITOR WITH THE CURRENT READING SR 67. PATIENT CONTINENT: BRP. IV ACCES L HAND G#22 , INTACT PATIENT AND FLUSHING WELL. FALL AND SAFETY PRECAUTION IN PLACE: BED AT THE LOWEST POSITION, LOCKED, SRx2,CALL LIGHT WITH REACH.
[2023-02-22] MEDS: risperiDONE 1 MG TABLET PO SCH ×2 (08:29→16:30)
[2023-02-22] MEDS: CARVEDILOL 12.5 MG TABLET PO SCH ×2 (08:31→17:23)
[2023-02-22] MEDS: LEVETIRACETAM (250 MG) 250 MG TABLET PO SCH ×2 (08:32→21:18)
[2023-02-22] MEDS: PANTOPRAZOLE 40 MG TABLET.DR PO SCH (08:32)
[2023-02-22] MEDS: BENZTROPINE MESYLATE (1 MG) 1 MG TABLET PO SCH ×2 (08:32→16:30)
[2023-02-22] MEDS: MAGNESIUM OXIDE 400 MG TABLET PO SCH (08:32)
[2023-02-22] MEDS: hydrALAZINE HCL 50 MG TABLET PO SCH ×3 (08:33→17:00)
[2023-02-22] MEDS: PAROXETINE HCL 20 MG TABLET PO SCH (08:34)
[2023-02-22] MEDS: CEFEPIME 2 GM in IV D5W 100 ML IV SCH ×2 (08:43→20:26)
[2023-02-22] MEDS: ASPIRIN EC 81 MG TABLET.DR PO SCH (08:55)
[2023-02-22] MEDS: CHOLECALCIFEROL (VITAMIN D 3) 400 UNIT TABLET PO SCH (08:56)
[2023-02-22] MEDS ORDERED: POTASSIUM CHLORIDE 20 MEQ TAB.PRT.SR PO SCH (10:00)
--- NOTE | 2023-02-22 10:49 | NUR ---
SS Consult: SS Consult requested due to "pt. has difficulty identifying resources". The pt. is a 68-year-old White female pt. who was admitted to [facility] due to Pneumonia. Pt. hax hx. of dementia, & epilepsy, per EMR. Upon SS consult, the pt. is Alert & Oriented x 3 and makes good eye contact. The pt. appears unkempt. Pt. has depressed mood & flat affect. Pt.s speech is slow and clear. Pt. was cooperative throughout interview. The pt. denies SI/HI and denies hallucinations. SW explored pt.s living situation. Patient states she currently at [facility] tel: [phone] [[id number] [facility] [address]]. SW explored pt.s mental health Hx. Pt. states she has been diagnosed with Paranoid Schizophrenia in the past and is on medications for this but could not recall the name. SW explored pt.s drug & ETOH use. Pt.denies drug or ETOH use. Per pt. she is ambulatory and independent with her ADLs. Plan: Pt. stated she will return to [facility] tel: [phone] [[id number] [facility] [address]] upon DC. Per CM note the solid waste facility operator, Phillip has confirmed pt. may return when ready for DC. GE provided pt. with the following elderly resources and she accepted them: ABUSE PREVENTION: Elder Abuse Hotline (30/05) Adult Protective Services Hotline Long-Term Care [facility] Region Area On Aging (Hotline) ADULT DAY HEALTH CARE CARE CENTERS: Private pay or Medi-chichi funded adult day care [place] Adult [facility] , [facility] , [facility] , [facility] Adult Day Health Care , [facility] Adult Day Health Care , [facility] Adult Day[facility] Center , [place] [facility] , [facility] , [facility] HEALTH ASSOCIATIONS: AARP www.aarp.org ALS Association (ask for Cadence) www.als.org K[place]gyz Diabetes Association www.diabetes.org [place] Heart Association www.heart.org [place] Lung Association www.lungusa.org [place] Parkinson Disease Association www.apdaparkinson.org [place]yr[place]z [place] , www.redcross.org Arthritis Foundation www.arthritis.org Crohns & Colitis Foundation of [place] www.ccfa.org/chapters/losangeles National Multiple Sclerosis Society www.nationalmssociety.org Myasthenia Gravis Foundation www.myasthenia-ca.org National Stroke Association www.stroke.org CONSERVATORSHIP & GUARDIANSHIP: AARP Joi Harper Legal Services Center for Health Care Rights Eldercare Information and Referral Global Marketing Operations Manager [facility]: [facility] Bar Referral Service [facility] Legal Services Office of the Public Guardian [place] GRIEF AND BEREAVEMENT RESOURCES: The [place] , [facility] THE HOPE Connection , [facility] Bereavement Center , [place] HELP AT HOME CAREGIVER SUPPORT: In Home Support Services (Must have Medi-Chichi to be eligible) *Ask for a list of agencies that provide services to assist with care in the home. Local Senior Centers also have listings of care providers. HOME SAFETY MODIFICATIONS AND EQUIPMENT: Senior centers have additional referrals. [place] Site9 and [employer] Investment Dept. Handyworker Program (low income) or Visit http://hcidla.[facility].org/pwc-onrkby-ru for more information National Seating and Mobility and/or ; Forever Active www.foreverAlacritechmed.Chumby Stay Home Safe www.Stayhomesafe.com LIFE ALERT RESPONSE SYSTEM: Thingy Clubline Services 912-878-9064 www. Phorm Life Alert 597-172-2042 www.Sodbuster Life Station 685-610-9495 www.ONE RECOVERYation.Chumby Safe Return 253-340-6599 www.alz.or/safereturn Cell Phones for Seniors www.Asteel MEALS AND FOOD PROGRAMS: Venus Meals on Wheels [phone] [place] Meals on Wheels [phone] [facility] [phone] [place] to the Homebound [phone] [place] to the Homebound [phone] [facility] to the Homebound [phone] [facility] to the Homebound [phone] Jag Lim [phone] [facility] [phone] ONE Generation [phone] [facility] [phone] Meals on Wheels [phone] For all ages: $6.85/ meal w side. Delivered M-F from 10 am-1pm. Application and payment is done over the phone. Frozen meals available for weekends. Emergency Food Coalition [phone] x2Marcelo Vaz Flat Bed Knitter [phone] [facility] [phone] Sofi [facility] Outreach- Brown bag lunches [phone] [facility] [phone] MEAL/GROCERY DELIVERY PROGRAMS: [facility] Gourmet Meals [phone]- [facility] [phone]- [facility] Magic Kitchen [phone] Moms Meals [phone] (ask Durant for Discount Select grocery stores may provide delivery. MEDICAL INSURANCE SUPPORT SERVICES: Center for Health Care Rights [phone] Health Insurance Counseling/Advocacy Programs (HICAP)-Must have Medicare. Offers counseling for Medi-Chichi eligibility [phone] [facility] Flat Bed Knitter [phone] www.[facility].ca.gov Medicare [phone] www.socialsecurity.org Social Security [phone] SENIOR ACTIVITY PROGRAMS: *Contact a local senior center, adult school, recreation facility or community college for education, fitness, recreation, and social programs. Aquatic Therapy and Adapted Exercise programs through [facility] [phone] Encore at [facility] [phone] www.[facility]/encore H2U- Senior Friends [phone] [place] Senior Programs [phone] www.oasisnet.org Suddenly 65 www.fmaougzd27.com SENIOR CENTERS: [facility] Center [phone] [facility] [phone] [facility] [phone] [facility] [phone] [facility] [phone] [facility] [phone] [facility] [phone] [facility] [phone] One Generation, [facility] [phone] [facility] [phone] [facility] [phone] [facility] [phone] [facility] [phone] TRANSPORTATION: Local [facility] Centers may have applications for transportation programs and additional resources. ACCESS Services [phone] Transportation for seniors and disabled persons 7 days a week requiring 254 hr. advance reservation. Must apply and register for program to be eligible. LoopPay [phone] or [phone] Transportation for seniors and persons with ADA card/metro disabled card in the [facility]. M-F only. Must register for services. ONE GENERATION [phone] Serves 65 years + in conjunction with HotelQuickly program. Must be registered with both programs. A to B Transport [phone] Provides wheelchair/gurney van service. TRANSPORTATION CONTINUED: Adult Medical Transport [phone] Accepts [facility] with prior authorization. Care Van [phone] Provides wheelchair Transport. [facility] Wide Transportation [phone] Provides gurney service [facility] [phone] Gurney Transport. [facility] Town Transportation [phone] wheelchair & gurney transport [facility] Transportation [phone] wheelchair & gurney transport [place] Non-Emergency Transport [phone] wheelchair & gurney transport [facility] [phone] (Short Term Transportation primarily for adults with disabilities on social security income. Nominal fee may apply and a reservation is required.) eSKY.pl Cab [phone] or [phone] [employer] [facility] Center[facility] Pharmaceuticals [phone] [place] [address] Referral Services [phone] For additional programs & services VETERANS RESOURCES: Submissions for Aid and Attendance should be done directly to Federal VA office located at: Federal [address] [facility] [address] [phone] National Caregiver Support Line [phone] Chichi [facility] Veterans Services Field Office [phone] [place] Department of [place] Affairs [phone] Pension Information [phone]
--- NOTE | 2023-02-22 13:55 | NUR ---
RN NOTES PATIENT COMPLAINED OF PAIN OF LOWER LEGS, PRN TYLENOL ADMINISTERED. WILL CONTINUE TO MONITOR.
[2023-02-22] MEDS ORDERED: HYDROCORTISONE 1% CREAM 28.35 GM TUBE TP PRN ×2 (17:00)
--- NOTE | 2023-02-22 17:25 | NUR ---
CADDY/CADDIE SUPERVISOR NOTE- MEDICATION REFUSAL PATIENT REFUSED MEDICATION @0154. HYDRALAZINE 50MG. PROVIDED BENEFIT AND EDUCATION. PATIENT STILL REFUSED. PATIENT SHOWING S/S OF CONFUSING, BELIEVED MEDICATION WAS PREVIOUSLY GIVEN. EXPLAINED AND REORIENTED THE PATIENT TO SITUATION. PATIENT STILL REFUSED.
--- NOTE | 2023-02-22 18:56 | NUR ---
REMELT FURNACE EXPEDITER TELE CLOSING NOTES PATIENT IN BED RESTING, A/Ox4. STABLE ON ROOM AIR. NO S/S OF SOB OR CARDIAC DISTRESS. NO COMPLAINTS OF PAIN AT THIS TIME. PATIENT ON EXTERNAL MONITOR WITH THE CURRENT READING SR 62. PATIENT CONTINENT: BRP WITH ASSIST, MONITORING FOR S/S OF SB/ ON TELE. IV ACCES L WRIST G#22 , INTACT PATIENT AND FLUSHING WELL. MEDICATION ADMINISTERED ORDERED. EPISODES OF CONFUSING OCCUR, VERBAL REORIENTATION NEEDED. PATIENT FALL AND SAFETY PRECAUTION MAINTAINED: BED AT THE LOWEST POSITION, LOCKED, SRx2,CALL LIGHT WITH REACH. ENDORSED TO MISSILEMAN NURSE.
--- NOTE | 2023-02-22 19:30 | NUR ---
LAUNDRY ROUTEMAN OPENING NOTES RECEIVED PT IN BED RESTING, EASILY AROUSABLE. A/O X2-3, SOME CONFUSION NOTED. ON RA WITH NO S/S OF SOB OR CARDIAC DISTRESS. NO COMPLAINTS OF PAIN AT THIS TIME. ON EXTERNAL MONITOR WITH THE CURRENT READING SR 65. IV ACCES L WRIST #22G, INTACT, PATENT, FLUSHING WELL, RUNNING NS @ 75 ML/HR. SAFETY PRECAUTIONS IN PLACE: BED LOCKED AND IN LOWEST POSITION, SIDE RAILS UP X3, CALL LIGHT AND TRAY TABLE WITHIN REACH. WILL CONTINUE TO MONITOR AND ASSIST.
[2023-02-22] MEDS: IV NS 0.9% 1,000 ML IV PRN (20:33)
[2023-02-22] MEDS: ATORVASTATIN 10 MG TABLET PO SCH (21:19)
[2023-02-22] MEDS: TRAZODONE 50 MG TABLET PO SCH (21:19)
[2023-02-22] MEDS: ENOXAPARIN SODIUM 40 MG/0.4 ML DISP.SYRIN SQ SCH (21:20)
[2023-02-23] VITALS (7 sets, daily range): BP systolic 117–175; BP diastolic 70–86
--- NOTE | 2023-02-23 01:19 | NUR ---
RN NOTE PT BP 175/76. NO PRN BP MEDS ORDERED AND PT REFUSED SCHEDULED HYDRALAZINE 50 MG TABLET @ 1700. INFORMED SECONDARY SPECIAL EDUCATION TEACHER DORIS CASPER, ORDERED HYDRALAZINE IVP 10 MG ONCE. WILL ADMINISTER PRESCRIBED.
[2023-02-23] MEDS ORDERED: hydrALAZINE HCL IV 20 MG VIAL IV PRN (01:30)
--- NOTE | 2023-02-23 02:49 | NUR ---
RN NOTE BP REASSESSED AFTER 1 HR: 153/70. HR 62.
--- NOTE | 2023-02-23 07:00 | NUR ---
LINEN FOLDER CLOSING NOTES PT AWAKE IN BED, ASKING TO TAKE A SHOWER. A/O X2-3, WITH SOME EPS OF CONFUSION DURING SHIFT. STABLE ON RA WITH NO S/S OF SOB OR CARDIAC DISTRESS. NO COMPLAINTS OF PAIN AT THIS TIME. PATIENT REMOVED EXTERNAL MONITOR AND REFUSING TO BE PUT BACK. WANTS TO TAKE A SHOWER FIRST. IV ACCESS L WRIST #22G, INTACT, PATENT, FLUSHING WELL, RUNNING NS @ 75 ML/HR. ALL CARE PROVIDED AND MEDS TOLERATED WELL. SAFETY PRECAUTIONS MAINTAINED: BED LOCKED AND IN LOWEST POSITION, SIDE RAILS UP X3, CALL LIGHT AND TRAY TABLE WITHIN REACH. WILL ENDORSE KOREY TO DAY SHIFT NURSE. Addendum: 02/23/23 at 0750 by DELMIS MCDERMOTT RN LAST READING ON TELE MONITOR WAS SINUS DESTINEE, 60.
--- NOTE | 2023-02-23 07:38 | NUR ---
BEHAVIOR INTERVENTIONIST OPENING NOTES RECEIVED PT IN ROOM TAKING SHOWER , . A/O X2-3, SOME CONFUSION AND FORGETFULNESS NOTED. ON RA WITH NO S/S OF SOB OR CARDIAC DISTRESS. NO COMPLAINTS OF PAIN AT THIS TIME. ON EXTERNAL MONITOR WITH THE CURRENT READING SR 65. IV ACCES L WRIST #22G, INTACT, PATENT, FLUSHING WELL, RUNNING NS @ 75 ML/HR. SAFETY PRECAUTIONS IN PLACE: BED LOCKED AND IN LOWEST POSITION, SIDE RAILS UP X3, CALL LIGHT AND TRAY TABLE WITHIN REACH. WILL CONTINUE TO MONITOR AND ASSIST.
[2023-02-23 07:40] LABS: CALCIUM, SERUM 9.4 mg/dL (8.5-10.1); CREATININE 0.8 mg/dL (0.6-1.3); POTASSIUM 3.7 mmol/L (3.5-5.1)
[2023-02-23 08:26] LABS: BASOPHILS % (AUTO) 0.5 % (0.0-2.0); EOSINOPHILS % (AUTO) 2.8 % (0.0-6.0); HEMATOCRIT 33 % (33-45); LYMPHOCYTES # (AUTO) 1.4 K/uL (0.8-4.8); LYMPHOCYTES % (AUTO) 20.6 % (20.0-44.0); MEAN CORPUSCULAR HGB CONC 33 g/dl (31.0-36.0); MEAN CORPUSCULAR VOLUME 95 fL (82-100); MONOCYTES # (AUTO) 0.8 K/uL (0.1-1.30); MONOCYTES % (AUTO) 12.9 % (2.0-12.0); NEUTROPHILS # (AUTO) 4.2 K/uL (1.8-8.9); NEUTROPHILS % (AUTO) 63.2 % (43.0-81.0); PLATELET COUNT (AUTO) 228 K/uL (150-450); RED BLOOD CELL COUNT(AUTO) 3.49 MIL/uL (4.0-5.2); WHITE BLOOD COUNT (AUTO) 6.6 K/uL (4.3-11.0)
[2023-02-23] MEDS: PANTOPRAZOLE 40 MG TABLET.DR PO SCH (08:29)
[2023-02-23] MEDS: CEFEPIME 2 GM in IV D5W 100 ML IV SCH ×2 (08:51→20:04)
[2023-02-23] MEDS: LEVETIRACETAM (250 MG) 250 MG TABLET PO SCH ×2 (09:14→20:24)
[2023-02-23] MEDS: ASPIRIN EC 81 MG TABLET.DR PO SCH (09:14)
[2023-02-23] MEDS: MAGNESIUM OXIDE 400 MG TABLET PO SCH (09:14)
[2023-02-23] MEDS: risperiDONE 1 MG TABLET PO SCH ×2 (09:14→17:23)
[2023-02-23] MEDS: CHOLECALCIFEROL (VITAMIN D 3) 400 UNIT TABLET PO SCH (09:15)
[2023-02-23] MEDS: PAROXETINE HCL 20 MG TABLET PO SCH (09:15)
[2023-02-23] MEDS: BENZTROPINE MESYLATE (1 MG) 1 MG TABLET PO SCH ×2 (09:18→17:23)
[2023-02-23] MEDS: CARVEDILOL 12.5 MG TABLET PO SCH ×2 (09:19→17:24)
[2023-02-23] MEDS: hydrALAZINE HCL 50 MG TABLET PO SCH ×3 (09:20→17:23)
--- NOTE | 2023-02-23 19:07 | NUR ---
CHILDCARE WORKER CLOSING NOTES PATIENT IN BED AWAKE WITH , . A/O X2 , SOME CONFUSION AND FORGETFULNESS NOTED. ON RA WITH NO S/S OF SOB OR CARDIAC DISTRESS. NO COMPLAINTS OF PAIN AT THIS TIME. . IV ACCES RAC #20 G SL , PATENT, FLUSHING WELL, FOR NS @ 75 ML/HR. BUT PATIENT REFUSED , AMBULATORY WITH BRP SAFETY PRECAUTIONS IN PLACE: BED LOCKED AND IN LOWEST POSITION, SIDE RAILS UP X3, CALL LIGHT AND TRAY TABLE WITHIN REACH. FOR D/C PLANNING AND WILL ENDORSED TO NEXT SHIFT .
--- NOTE | 2023-02-23 20:45 | NUR ---
CYBER INCIDENT ANALYST OPENING NOTES RECEIVED PATIENT IN BED ASLEEP, ON MODERATE HIGH BACK REST POSITION. ON ROOM AIR SATURATING WELL. A/OX2 WITH EPISODES OF FORGETFUL AND CONFUSION. AMBULATORY AND CONTINENT ABLE TO TO DO ADL. ON CARDIAC DIET. NO COMPLAIN OF SOB OR DISTRESS AT THIS TIME. NO PAIN OR DISCOMFORT AT THIS TIME. KEPT BED ON LOWER LOCKED POSITION, KEPT SIDE RAILS UP X 2 ALL THE TIME, KEPT CALL LIGHT WITHIN AT REACH. WILL CONTINUE TO MONITOR FOR KOREY.
[2023-02-23] MEDS: TRAZODONE 50 MG TABLET PO SCH (21:15)
[2023-02-23] MEDS: ATORVASTATIN 10 MG TABLET PO SCH (21:15)
[2023-02-23] MEDS: ENOXAPARIN SODIUM 40 MG/0.4 ML DISP.SYRIN SQ SCH (21:16)
--- NOTE | 2023-02-24 06:39 | NUR ---
RN NOTES PATIENT REMOVED HER IV ACCESS, INSERTED NEW IV ACCESS AT LEFT HAND #22G SL PATENT AND INTACT. WILL CONTINUE TO MONITOR.
--- NOTE | 2023-02-24 06:47 | NUR ---
SOFTWARE ENGINEER CLOSING NOTES PATIENT IN BED AWAKE WITH , . A/O X3, SOME CONFUSION AND FORGETFULNESS NOTED. ON RA WITH NO S/S OF SOB OR CARDIAC DISTRESS. NO COMPLAINTS OF PAIN AT THIS TIME. . IV ACCES RAC #20 G SL , PATENT, FLUSHING WELL, FOR NS @ 75 ML/HR. BUT PATIENT REFUSED , AMBULATORY WITH [facility]P SAFETY PRECAUTIONS IN PLACE: BED LOCKED AND IN LOWEST POSITION, SIDE RAILS UP X3, CALL LIGHT AND TRAY TABLE WITHIN REACH.PM CARE RENDERED AND ALL NEEDS ATTENDED/ ALL DUE MEDICATIONS GIVEN, ALL NEEDS ATTENDED PM CARE RENDERED. FOR D/C PLANNING AND WILL ENDORSED TO NEXT SHIFT .
--- NOTE | 2023-02-24 07:20 | NUR ---
DIRECTOR INTERNAL CONTROL OPENING NOTE RECEIVED PATIENT IN BED ALERT AND ORIENTED X 2 WITH NO SIGNS OF RESPIRATORY DISTRESS. ABLE TO MAKE NEEDS KNOWN. ON ROOM AIR WITH EQUAL AND UNLABORED BREATHING WITH NO SIGNS OF RESPIRATORY DISTRESS. NO COMPLAIN OF PAIN OR DISCOMFORT AT THIS TIME. KEPT BED ON LOWER LOCKED POSITION, KEPT SIDE RAILS UP X 2 ALL THE TIME, KEPT CALL LIGHT WITHIN AT REACH. WILL CONTINUE WITH PLAN OF CARE.
[2023-02-24 07:53] LABS: CALCIUM, SERUM 9.4 mg/dL (8.5-10.1); CREATININE 0.8 mg/dL (0.6-1.3); POTASSIUM 4.1 mmol/L (3.5-5.1)
[2023-02-24 07:58] VITALS: BP 116/82
[2023-02-24] MEDS: CHOLECALCIFEROL (VITAMIN D 3) 400 UNIT TABLET PO SCH (08:37)
[2023-02-24] MEDS: risperiDONE 1 MG TABLET PO SCH ×2 (08:38→17:10)
[2023-02-24] MEDS: ASPIRIN EC 81 MG TABLET.DR PO SCH (08:38)
[2023-02-24] MEDS: LEVETIRACETAM (250 MG) 250 MG TABLET PO SCH (08:38)
[2023-02-24] MEDS: PANTOPRAZOLE 40 MG TABLET.DR PO SCH (08:38)
[2023-02-24] MEDS: BENZTROPINE MESYLATE (1 MG) 1 MG TABLET PO SCH ×2 (08:40→17:09)
[2023-02-24] MEDS: CARVEDILOL 12.5 MG TABLET PO SCH ×2 (08:41→17:09)
[2023-02-24] MEDS: hydrALAZINE HCL 50 MG TABLET PO SCH ×3 (08:42→17:09)
[2023-02-24] MEDS: PAROXETINE HCL 20 MG TABLET PO SCH (08:42)
[2023-02-24] MEDS: MAGNESIUM OXIDE 400 MG TABLET PO SCH (08:43)
[2023-02-24] MEDS: CEFEPIME 2 GM in IV D5W 100 ML IV SCH (08:47)
--- NOTE | 2023-02-24 11:50 | NUR ---
MS RN NOTE PATIENT SEEN BY DR. OLIVA WITH ORDER TO DISCHARGE PATIENT. HEALTH TEACHING DONE REGARDING DISCHARGE PROCEDURE AND DISCHARGE INSTRUCTIONS. VERBALIZED UNDERSTANDING AND APPRECIATION. PATIENT WITH SOME DEMENTIA. ABLE TO ENGAGE BUT SOME COGNITIVE LIMITATIONS. WILL NEED REINFORCEMENTS. WILL CONTINUE WITH PLAN OF CARE. IN STABLE CONDITION. AWAITING ADVICE FROM ELECTRIC SWITCH TESTER FOR PICK-UP.
--- NOTE | 2023-02-24 15:30 | NUR ---
MS RN NOTE SPOKE WITH DEVELOPMENT TRAINER JOEY, HE WILL COMPONENT INSPECTOR PATIENT AT 1700 TODAY. IN STABLE CONDITION.
[2023-02-24 15:46] VITALS: BP 109/63
[2023-02-24 17:09] VITALS: BP 109/63
--- NOTE | 2023-02-24 17:45 | NUR ---
MS RN NOTE PATIENT DISCHARGED ORDERED. IV ACCESS REMOVED AND COVERED WITH DRY GAUZE, TOLERATED WELL. HEALTH TEACHING DONE REGARDING DISCHARGE INSTRUCTION TO BACK TENDER CLOTH PRINTING JOEY. VERBALIZED UNDERSTANDING AND APPRECIATION. IN STABLE CONDITION. PATIENT AND CAREGIVER OPTED TO WALK TO THE LOBBY FOR DISCHARGE. ENDORSED ACCORDINGLY.
== END 2023-02-24 17:50 | disposition home health service (06) | DRG 177 ==
LOC: ER 13:23 → TELE 20:06 → MED 02-23 11:00
PROVIDERS: ADMIT Nurse Practitioner Acute Care
DX: J15.6 Pneumonia due to other Gram-negative bacteria (principal); J96.21 Acute and chronic respiratory failure with hypoxia; D68.59 Other primary thrombophilia; G40.909 Epilepsy, unspecified, not intractable, without status epilepticus; Z20.822 Contact with and (suspected) exposure to COVID-19; F03.90 Unspecified dementia, unspecified severity, without behavioral disturbance, psychotic disturbance, mood disturbance, and anxiety; I10 Essential (primary) hypertension; Z79.899 Other long term (current) drug therapy; Z79.82 Long term (current) use of aspirin; E66.01 Morbid (severe) obesity due to excess calories; Y95 Nosocomial condition; Z68.24 Body mass index [BMI] 24.0-24.9, adult; F09 Unspecified mental disorder due to known physiological condition
CPT/HCPCS: 36415; 71045-TC; 80048-TC; 80061-TC; 80202-TC; 83735-TC; 83880; 84100-TC; 84484-TC; 85025-TC; 87040-TC; 87081-TC; 94799-TC; 97116-TC; 97530-TC; A4223; C9803; G0378; J0360; J0692; J1650; J3370; J3475; J7030; J7040; J7060